=== PATIENT | male | born 1995 | race Caucasian/White ===

== ENCOUNTER 2019-05-02 02:44 | Emergency (ER) | payer MEDICAID, OTHER ==
[~2019-05-02] VITALS: Ht 180.3 cm; Wt 96.9 kg
[2019-05-02 02:53] VITALS: BP 151/94
--- NOTE | 2019-05-02 03:15 | NUR ---
PT INSTRUCTED ON USE OF CALL LIGHT, WHICH IS IN REACH. PT INSTRUCTED NOT TO GET OUT OF BED WITHOUT FIRST PRESSING CALL LIGHT. URINAL ON BED RAIL. BED RAILS UP X2. WATER AND BREAD PROVIDED PER PT REQUEST.
--- NOTE | 2019-05-02 05:50 | NUR ---
PT AMBUYLATORY TO THE BATHROOM AND DISCHARGE DESK WITH STEADY GAIT. PT A+OX4, ANSWERING QUESTIONS APPROPRAITELY. 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
== END 2019-05-02 05:52 | disposition home or self-care (01) ==
LOC: ED 05:20
DX: F10.120 Alcohol abuse with intoxication, uncomplicated (principal)
CPT/HCPCS: 99283